=== PATIENT | female | born 1935 | race Caucasian/White ===

== ENCOUNTER 2016-04-21 09:04 | Emergency (ER) | payer MEDICARE, OTHER ==
[2016-04-21] MEDS ORDERED: NORMAL SALINE 1000 ML 1,000 ML IV ONE (10:10)
[2016-04-21 14:15] LABS: ABSOLUTE BASOPHILS # (AUTO) 0.1 10^3/uL (0.0-0.2); ABSOLUTE MONOCYTES (AUTO) 0.6 10^3/uL (0.1-1.4); ABSOLUTE NEUT (AUTO) 3.2 10^3/uL (1.7-8.2); BASOPHILS % (AUTO) 1.3 % (0-2); HEMATOCRIT 32.7 % (36.0-47.0); HEMOGLOBIN 9.7 g/dL (12.0-15.5); HGB HCT DIFFERENCE -3.6; LYMPHOCYTES % (AUTO) 21.1 % (13-45); MEAN CORPUSCULAR HEMOGLOBIN 24.5 pg (27.0-33.4); MEAN CORPUSCULAR HGB CONC 29.8 g/dL (32.0-36.0); MEAN CORPUSCULAR VOLUME 82 fl (80-97); MONOCYTES % (AUTO) 11.4 % (3-13); RED BLOOD COUNT 3.98 10^6/uL (3.72-5.28); RED CELL DISTRIBUTION WIDTH 14.8 % (11.5-14.0); SEGMENTED NEUTROPHILS % (AUTO) 65.2 % (42-78)
[2016-04-21 14:20] LABS: PROTHROMBIN TIME 12.7 SEC (11.4-15.4)
[2016-04-21 14:21] LABS: PARTIAL THROMBOPLASTIN TIME 27.2 SEC (23.5-35.8)
[2016-04-21 14:44] LABS: ALANINE AMINOTRANSFERASE 28 U/L (9-52); ALBUMIN 3.9 g/dL (3.5-5.0); ALKALINE PHOSPHATASE 65 U/L (38-126); ANION GAP 8 (5-19); ASPARTATE AMINO TRANSFERASE 26 U/L (14-36); BILIRUBIN,TOTAL 0.4 mg/dL (0.2-1.3); BLOOD UREA NITROGEN 16 mg/dL (7-20); CALCIUM 9.6 mg/dL (8.4-10.2); CARBON DIOXIDE 28 mmol/L (22-30); CHLORIDE 107 mmol/L (98-107); CREATININE RESULT 0.55 mg/dL (0.52-1.25); GLUCOSE 80 mg/dL (75-110); POTASSIUM 4.1 mmol/L (3.6-5.0); SODIUM 143.3 mmol/L (137-145); TOTAL PROTEIN 6.7 g/dL (6.3-8.2)
--- NOTE | 2016-04-21 15:09 | ER Document Report ---
ED General - General Chief Complaint: Rectal Bleeding Stated Complaint: RECTAL BLEEDING Time seen by provider: 10:00 Mode of Arrival: Ambulatory Information source: Patient, Relative Notes: 80-year-old female was noted by daughter to have blood in toilet bowl this morning. Patient thinks this was rectal bleeding. She reports history rectal bleeding about 2 years ago says she required admission for and was transferred to the Hospital in [place]. He says that they wanted to some type of test that she refused and no definitive etiology for her bleeding was found but she had no recurrences. He reports no abdominal pain in association with bleeding this morning. She says she had no problems yesterday. She denies fever, chills , nausea, vomiting, hematemesis, melena, dysuria, vaginal bleeding or discharge , chest pain, back pain, dizziness, or syncope. Physical Exam: General: Alert, appears well. HEENT: Normocephalic. Atraumatic. PERRLA. Extraocular movements intact. Oropharynx clear. Neck: Supple. Non-tender. Respiratory: No respiratory distress. Clear and equal breath sounds bilaterally. Cardiovascular: Regular rate and rhythm. Abdominal: Normal Inspection. Soft, non-tender. No distension. Normal Bowel Sounds. atrophic female external genitalia no blood in vaginal vault Rectal normal tone and brown stool no external hemorrhoids fissures or bleeding identified patient does have what appears to be small amount of dried blood on her left posterior thigh but no abrasion or laceration identified Back: Non-tender. No deformity or step off. Extremities: Moves all four extremities. Upper extremities: Normal inspection. Non-tender. Normal color. Normal ROM. Normal temperature. Lower extremities: Normal inspection. Non-tender. No edema. Normal color. Normal ROM. Normal temperature. No Homans sign bilaterally Neurological: Speech clear mentation normal Psychological: Normal affect. Normal Mood. Skin: Warm. Dry. Normal color. TRAVEL OUTSIDE OF THE [place] IN LAST 30 DAYS: No - Related Data Allergies/Adverse Reactions: No Known Allergies Allergy (Verified 04/21/16 09:21) Past Medical History - Social History Smoking Status: Never Smoker Chew tobacco use (# tins/day): No Frequency of alcohol use: None Drug Abuse: None Family History: Reviewed & Not Pertinent Patient has suicidal ideation: No Patient has homicidal ideation: No - Past Medical History Cardiac Medical History: Denies: Hx Coronary Artery Disease, Hx Heart Attack, Hx Hypertension Pulmonary Medical History: Denies: Hx Asthma, Hx Bronchitis, Hx COPD, Hx Pneumonia Neurological Medical History: Denies: Hx Cerebrovascular Accident, Hx Seizures Renal/ Medical History: Denies: Hx Peritoneal Dialysis Musculoskeltal Medical History: Denies Hx Arthritis Past Surgical History: Reports: Hx Appendectomy. Denies: Hx Hysterectomy, Hx Pacemaker - Immunizations Hx Diphtheria, Pertussis, Tetanus Vaccination: No Review of Systems - Review of Systems Constitutional: denies: Chills, Fever EENT: denies: Ear pain, Throat pain Cardiovascular: denies: Chest pain, Syncope Respiratory: denies: Cough, Short of breath Gastrointestinal: denies: Abdominal pain, Diarrhea, Nausea, Vomiting, Blood in vomit, Black stools Genitourinary: denies: Burning, Dysuria Female Genitourinary: denies: Vaginal discharge, Vaginal bleeding Musculoskeletal: denies: Back pain Hematologic/Lymphatic: denies: Swollen glands Neurological/Psychological: denies: Weakness, Numbness Physical Exam - Vital signs Vitals: Temp Pulse Resp BP Pulse Ox 98.2 F 71 14 147/66 H 98 04/21/16 09:15 04/21/16 09:15 04/21/16 09:15 04/21/16 09:15 04/21/16 09:15 Course - Re-evaluation Re-evalutation: 04/21/16 15:07 Patient has remained asymptomatic and hemodynamically stable during her stay in the emergency department with no GI bleeding here in her stool is heme-negative here. Daughter reports that they came here at the instructions of her primary care physician's office. Patient has seen Dr. Melany nichols gastroenterology in the past but doesn't recall her last colonoscopy. Family reports she recently had an upper endoscopy with what sounds like treatment for esophageal stricture. Her hemoglobin is slightly low but she does not require transfusion and it is within the range of hemoglobin is that she's had over the past 2 years. Daughter reports patient recently stopped iron supplements which had been taking for chronic anemia. Line I found no evidence to this point for any GI bleeding serious enough to require admission. Reexamination of abdomen shows it to be completely benign patient is hungry and asking to eat. I believe she is safe for discharge have asked them to follow-up with her gastrologist within 1 week for recheck. Also discussed with them changes in her presentation that would warrant return to the emergency department such as vomiting, abdominal pain, fever, leading that does not stop, dizziness, passing out, or shortness of breath. They're comfortable with discharge agreed outpatient follow-up - Vital Signs Vital signs: Temp Pulse Resp BP Pulse Ox 98.2 F 71 14 147/66 H 98 04/21/16 09:15 04/21/16 09:15 04/21/16 09:15 04/21/16 09:15 04/21/16 09:15 - Laboratory Result Diagrams: 04/21/16 14:00 04/21/16 14:00 Laboratory results interpreted by me: 04/21/16 14:00 Hgb 9.7 L Hct 32.7 L MCH 24.5 L MCHC 29.8 L RDW 14.8 H Discharge - Discharge Clinical Impression: Rectal bleeding Anemia Qualifiers: Anemia type: unspecified type Qualified Code(s): D64.9 - Anemia, unspecified Condition: Stable Disposition: HOME, SELF-CARE Additional Instructions: Rectal Bleeding, Unclear Cause No definite cause has been found for the rectal bleeding you have experienced. Among the possible causes are internal or external hemorrhoids ( internal hemorrhoids can't be felt on the outside), an anal fissure (a crack at the anal ring), infections or inflammatory diseases of the colon, tumors or polyps, or diverticula (diverticula are outpouchings from the colon wall). To establish a cause for your bleeding (or at least make certain there is no serious problem such as a tumor), further evaluation will be necessary. This may include special X-rays, or passage of a scope up into the colon. Be sure to keep your follow-up appointment. Should you develop brisk bleeding, abdominal pain, fever, lightheadedness, vomiting, or fever, call the doctor or return at once. Referrals: MARTIN FORD MD [Primary Care Provider] - Follow up as needed MEHUL BURRELL MD [EMERITUS] - Follow up in 3-5 days
[2016-04-21 15:28] VITALS: BP 187/84
== END 2016-04-21 15:22 | disposition home or self-care (01) ==
LOC: ER 09:04
DX: K62.5 Hemorrhage of anus and rectum (principal); D64.9 Anemia, unspecified
CPT/HCPCS: 99283; 96360; 36415; 85025; 85610; 85730; 82272; 80053; J7030

== ENCOUNTER → 2016-07-06 | Outpatient (CLI) | payer MEDICARE, OTHER | LOC: OD 10:25 | PROVIDERS: ATTEND Internal Medicine Medical Oncology | DX: R09.89 Other specified symptoms and signs involving the circulatory and respiratory systems (principal) | CPT/HCPCS: 71020 ==

== ENCOUNTER 2016-08-04 14:48 | Emergency (ER) | payer MEDICARE, OTHER ==
--- NOTE | 2016-08-04 15:48 | ER Document Report ---
ED Medical Screen (RME) - General Mode of Arrival: Ambulatory Information source: Patient, Relative TRAVEL OUTSIDE OF THE [place] IN LAST 30 DAYS: No - HPI Patient complains to provider of: weakness <BRIGHT KOHLER - Last Filed: 08/04/16 15:43> <LUKE GALICIA - Last Filed: 08/04/16 19:45> - General Chief Complaint: Weakness Stated Complaint: weakness Time Seen by Provider: 08/04/16 15:31 Notes: Patient presents with weakness onset about 1.5 weeks ago. Per patient has a decreased appetite. Patient recovered from pneumonia 2 weeks ago. Sent over by Dr. Paredes. Hx of HTN, hypercholesterolemia, and anemia. (BRIGHT KOHLER) - Related Data Allergies/Adverse Reactions: No Known Allergies Allergy (Verified 08/04/16 15:26) Past Medical History - General Information source: Patient - Past Medical History Cardiac Medical History: Denies: Hx Coronary Artery Disease, Hx Heart Attack, Hx Hypertension Pulmonary Medical History: Denies: Hx Asthma, Hx Bronchitis, Hx COPD, Hx Pneumonia Neurological Medical History: Denies: Hx Cerebrovascular Accident, Hx Seizures Renal/ Medical History: Denies: Hx Peritoneal Dialysis Musculoskeltal Medical History: Denies Hx Arthritis Past Surgical History: Reports: Hx Appendectomy. Denies: Hx Hysterectomy, Hx Pacemaker - Immunizations Hx Diphtheria, Pertussis, Tetanus Vaccination: No <BRIGHT KOHLER - Last Filed: 08/04/16 15:43> Review of Systems - Review of Systems Constitutional: See HPI, Weakness <BRIGHT KOHLER - Last Filed: 08/04/16 15:43> Physical Exam - General General appearance: Other - weak appearing. very hard of hearing. - Respiratory Respiratory status: No respiratory distress <BRIGHT KOHLER - Last Filed: 08/04/16 15:43> Course - Laboratory Result Diagrams: 08/04/16 16:30 08/04/16 16:30 <LUKE GALICIA - Last Filed: 08/04/16 19:45> - Vital Signs Vital signs: Temp Pulse Resp BP Pulse Ox 98.3 F 93 18 114/69 95 08/04/16 14:53 08/04/16 14:53 08/04/16 18:46 08/04/16 18:46 08/04/16 18:46 - Laboratory Laboratory results interpreted by me: 08/04/16 08/04/16 16:30 16:30 WBC 11.0 H Hgb 11.3 L MCV 75 L MCH 23.2 L MCHC 30.9 L RDW 19.7 H BUN 29 H Glucose 118 H Calcium 10.8 H Direct Bilirubin 0.5 H Doctor's Discharge <BRIGHT KOHLER - Last Filed: 08/04/16 15:43> <LUKE GALICIA - Last Filed: 08/04/16 19:45> - Discharge Clinical Impression: NSTEMI (non-ST elevated myocardial infarction) Referrals: JHONY RAMIREZ MD [Primary Care Provider] - Follow up as needed Scribe Documentation - Scribe Written by Kilo:: kilo Merchant, 08/04/16, 1547 acting as scribe for :: Priyank <BRIGHT KOHLER - Last Filed: 08/04/16 15:43>
--- NOTE | 2016-08-04 16:36 | ER Document Report ---
ED General - General Chief Complaint: Weakness Stated Complaint: DEHYDRATION Time Seen by Provider: 08/04/16 15:31 Mode of Arrival: Ambulatory Notes: The patient is an 80-year-old female, past medical history hypertension, arthritis, difficulty hearing, possible dementia, presents from her GI office after she has had a loss of appetite 4 days and there was concern about possible dehydration. According to the , the patient has not been eating or drinking for the past 4 days. The patient has difficulty hearing, but denies chest pain, shortness of breath, abdominal pain, nausea, vomiting, fevers, headache, back pain, focal weakness or numbness. TRAVEL OUTSIDE OF THE [place] IN LAST 30 DAYS: No - Related Data Allergies/Adverse Reactions: No Known Allergies Allergy (Verified 08/04/16 15:26) Past Medical History - General Information source: Patient - Social History Smoking Status: Unknown if Ever Smoked Family History: Reviewed & Not Pertinent Patient has suicidal ideation: No Patient has homicidal ideation: No - Past Medical History Cardiac Medical History: Denies: Hx Coronary Artery Disease, Hx Heart Attack, Hx Hypertension Pulmonary Medical History: Denies: Hx Asthma, Hx Bronchitis, Hx COPD, Hx Pneumonia Neurological Medical History: Denies: Hx Cerebrovascular Accident, Hx Seizures Renal/ Medical History: Denies: Hx Peritoneal Dialysis Musculoskeltal Medical History: Denies Hx Arthritis Past Surgical History: Reports: Hx Appendectomy. Denies: Hx Hysterectomy, Hx Pacemaker - Immunizations Hx Diphtheria, Pertussis, Tetanus Vaccination: No Review of Systems - Review of Systems Notes: REVIEW OF SYSTEMS: CONSTITUTIONAL: -fevers, -chills EENT: -eye pain, -difficulty swallowing, -nasal congestion CARDIOVASCULAR: -chest pain, -syncope. RESPIRATORY: -cough, -SOB GASTROINTESTINAL: +loss of appetite, -abdominal pain, -nausea, -vomiting, - diarrhea GENITOURINARY: -dysuria, -hematuria MUSCULOSKELETAL: -back pain, -neck pain SKIN: -rash or skin lesions. HEMATOLOGIC: -easy bruising or bleeding. LYMPHATIC: -swollen, enlarged glands. NEUROLOGICAL: -altered mental status or loss of consciousness, -headache, - neurologic symptoms PSYCHIATRIC: -anxiety, -depression. ALL OTHER SYSTEMS REVIEWED AND NEGATIVE. Physical Exam - Vital signs Vitals: Temp Pulse Resp BP Pulse Ox 98.3 F 93 12 90/59 L 95 08/04/16 14:53 08/04/16 14:53 08/04/16 14:53 08/04/16 14:53 08/04/16 14:53 - Notes Notes: PHYSICAL EXAMINATION: GENERAL: Elderly appearing, cachectic HEAD: Atraumatic, normocephalic. EYES: Pupils equal round and reactive to light, extraocular movements intact, sclera anicteric, conjunctiva are normal. ENT: nares patent, oropharynx clear without exudates. Dry mucous membranes. NECK: Normal range of motion, supple without lymphadenopathy LUNGS: Breath sounds clear to auscultation bilaterally and equal. No wheezes rales or rhonchi. HEART: Regular rate and rhythm without murmurs ABDOMEN: Soft, nontender, normoactive bowel sounds. No guarding, no rebound. No masses appreciated. EXTREMITIES: Normal range of motion, no pitting or edema. No cyanosis. NEUROLOGICAL: Cranial nerves grossly intact. Normal speech. Normal sensory, motor, and reflex exams. SKIN: Warm, Dry, normal turgor, no rashes or lesions noted. Course - Re-evaluation Re-evalutation: 08/04/16 16:33 Pt's first EKG in triage shows a regular wide complex tachycardia with left bundle branch block. Her last EKG from 2010 does not show evidence of a LBBB. When patient arrived to Main ER, she converted spontaneously into normal sinus rhythm with left bundle branch block. Her modified Scarbossa score is 2. Patient had no chest pain during these incidents. Spoke to Dr. Ferguson (Cardiology) about initial tachycardia with new onset LBBB and then conversion into NSR at HR 76. Does not suspect STEMI with Modified Scarbossa score 2. He reviewed EKGs and recommends transfer for Electrophysiology and Interventional Cardiology. Pt's would like to be transferred to [facility]. Called Transfer Center at 18:00 and awaiting callback. ASA and heparin gtt started for NSTEMI. 08/04/16 19:31 Spoke to Hospitalist (Dr. Sommer) at [facility] and is requesting callback when second troponin is back. 08/04/16 21:10 Second set of troponin is the same. CT A/P obtained because she is due for an outpatient one this week. It showed moderate constipation but no other acute processes. Spoke to Dr. Sommer and he has accepted patient to [facility] for possible further evaluation by outpatient facility physical therapist and music engineer. - Vital Signs Vital signs: Temp Pulse Resp BP Pulse Ox 98.3 F 93 18 114/69 95 08/04/16 14:53 08/04/16 14:53 08/04/16 18:46 08/04/16 18:46 08/04/16 18:46 - Laboratory Result Diagrams: 08/04/16 16:30 08/04/16 16:30 Laboratory results interpreted by me: 08/04/16 08/04/16 16:30 16:30 WBC 11.0 H Hgb 11.3 L MCV 75 L MCH 23.2 L MCHC 30.9 L RDW 19.7 H BUN 29 H Glucose 118 H Calcium 10.8 H Direct Bilirubin 0.5 H - Diagnostic Test Radiology reviewed: Image reviewed, Reports reviewed Radiology results interpreted by me: CXR: NAD CT A/P: Moderate constipation - EKG Interpretation by Me Rate: Tachycardia Rhythm: SVT Winston/QRS: LBBB When compared to previous EKG there are: Changes noted - New LBBB. Regular, wide -complex tachycardia Critical Care Note - Critical Care Note Total time excluding time spent on procedures (mins): 45 Discharge - Discharge Clinical Impression: NSTEMI (non-ST elevated myocardial infarction), Tachyarrhythmia Condition: Stable Disposition: PS[facility]CHIATRIC HOSPITAL Referrals: JHONY RAMIREZ MD [Primary Care Provider] - Follow up as needed
[2016-08-04] MEDS ORDERED: NORMAL SALINE 500 ML IV ONE (16:47)
[2016-08-04 16:58] LABS: ABSOLUTE BASOPHILS # (AUTO) 0.1 10^3/uL (0.0-0.2); ABSOLUTE LYMPHOCYTES (AUTO) 1.8 10^3/uL (0.5-4.7); BASOPHILS % (AUTO) 1.2 % (0-2); EOSINOPHILS % (AUTO) 0.1 % (0-6); HEMATOCRIT 36.5 % (36.0-47.0); HEMOGLOBIN 11.3 g/dL (12.0-15.5); HGB HCT DIFFERENCE -2.6; LYMPHOCYTES % (AUTO) 16.3 % (13-45); MEAN CORPUSCULAR HEMOGLOBIN 23.2 pg (27.0-33.4); MEAN CORPUSCULAR HGB CONC 30.9 g/dL (32.0-36.0); MEAN CORPUSCULAR VOLUME 75 fl (80-97); MONOCYTES % (AUTO) 9.3 % (3-13); RED BLOOD COUNT 4.86 10^6/uL (3.72-5.28); RED CELL DISTRIBUTION WIDTH 19.7 % (11.5-14.0); SEGMENTED NEUTROPHILS % (AUTO) 73.1 % (42-78)
[2016-08-04 17:13] LABS: ALANINE AMINOTRANSFERASE 17 U/L (9-52); ALBUMIN 3.7 g/dL (3.5-5.0); ALKALINE PHOSPHATASE 89 U/L (38-126); ANION GAP 12 (5-19); ASPARTATE AMINO TRANSFERASE 34 U/L (14-36); BILIRUBIN,DIRECT 0.5 mg/dL (0.0-0.4); BILIRUBIN,TOTAL 0.9 mg/dL (0.2-1.3); BLOOD UREA NITROGEN 29 mg/dL (7-20); CALCIUM 10.8 mg/dL (8.4-10.2); CARBON DIOXIDE 30 mmol/L (22-30); CHLORIDE 102 mmol/L (98-107); CREATINE KINASE 72 U/L (30-135); CREATININE RESULT 0.88 mg/dL (0.52-1.25); GLUCOSE 118 mg/dL (75-110); POTASSIUM 3.8 mmol/L (3.6-5.0); SODIUM 144.1 mmol/L (137-145); TOTAL PROTEIN 7.4 g/dL (6.3-8.2)
[2016-08-04] MEDS ORDERED: HEPARIN SOD (PORCINE) 1,000 UNIT/ML 10 ML VIAL IV ONE ×2 (17:32→21:22)
[2016-08-04] MEDS ORDERED: ASPIRIN 325 MG TABLET PO ONE (17:32)
[2016-08-04] MEDS ORDERED: HEPARIN SODIUM,PORCINE/D5W 250 ML IV PRN (17:33)
[2016-08-04 17:44] LABS: PARTIAL THROMBOPLASTIN TIME 26.5 SEC (23.5-35.8)
[2016-08-04 23:10] LABS: APPEARANCE,URINE SLIGHTLY-CLOUDY; BILIRUBIN,URINE NEGATIVE (NEGATIVE); GLUCOSE, URINE NEGATIVE (NEGATIVE); KETONES,URINE NEGATIVE (NEGATIVE); LEUKOCYTE ESTERASE,URINE MODERATE (NEGATIVE); NITRITE,URINE NEGATIVE (NEGATIVE); PROTEIN,URINE NEGATIVE (NEGATIVE); URINE SPECIFIC GRAVITY 1.033; UROBILINOGEN,URINE NEGATIVE mg/dL (<2.0)
[2016-08-04 23:18] VITALS: BP 131/69
--- NOTE | 2016-08-05 13:42 | EKG REPORT ---
SEVERITY:- ABNORMAL ECG - SINUS RHYTHM ATRIAL PREMATURE COMPLEX LEFT BUNDLE BRANCH BLOCK : Confirmed by: Marcos Lan 05-Aug-2016 13:41:31
--- NOTE | 2016-08-05 13:43 | EKG REPORT ---
SEVERITY:- ABNORMAL ECG - WIDE COMPLEX TACHYCARDIA : Confirmed by: Marcos Lan 05-Aug-2016 13:42:11
== END 2016-08-04 23:45 | disposition short-term general hospital (02) ==
LOC: ER 14:48
DX: R53.1 Weakness (principal); E86.0 Dehydration; I10 Essential (primary) hypertension; I21.4 Non-ST elevation (NSTEMI) myocardial infarction; R00.0 Tachycardia, unspecified; I49.9 Cardiac arrhythmia, unspecified
CPT/HCPCS: 93005; 96376; 99291; 96365; 96366; 36415; 82550; 85025; 85610; 85730; 80053; 81001; 84484; 71010; 74177; 93010; J1644 ×2; A9270; J7040